=== PATIENT | female | born 1995 | race Caucasian/White ===

== ENCOUNTER 2020-08-16 14:07 | Observation (INO) ==
[2020-08-16] MEDS ORDERED: SODIUM CHLORIDE 0.9% 1,000 ML IV STA (15:36)
[2020-08-16] MEDS ORDERED: cefTRIAXone 1,000 MG in SODIUM CHLORIDE 0.9% 100 ML IV STA (15:43)
[2020-08-16] MEDS ORDERED: cefTRIAXone 1,000 MG VIAL ONE (16:18)
[2020-08-16 16:26] LABS: Basophils % 0.5 % (0.0-0.8); Eosinophils % 0.3 % (0.00-10.9); Hematocrit 40.3 VOL% (35.7-47.0); Hemoglobin 13.5 GM/DL (12.0-16.0); Immature Granulocytes % 0.6 %; Immature Granulocytes Absolute 0.05 #; Lymphocytes # 1.4 10*3/uL (1.4-4.0); Lymphocytes % 17.8 % (21.3-54.2); Mean Corpuscular HGB Conc 33.5 GM/DL (32-36); Mean Corpuscular Volume 78.6 FL (87-102); Mean Platelet Volume 9.2 FL (9.6-12.0); Monocytes % 8.6 % (1.7-12.7); Neutrophils % 72.2 % (38.7-73.9); Platelet Count 239 T/CUMM (130-400); Red Blood Count 5.13 MC/CUMM (3.8-5.5); Red Cell Distribution Width 13.1 % (9.3-17.3); White Blood Count 7.8 T/CUMM (4-12)
[2020-08-16 16:26] LABS: Bacteria,Urine Occasional /HPF (Few); Bilirubin,Urine Negative (Negative); Blood, Urine Negative (Negative); Glucose,Urine (UA) Negative (Negative); Ketones,Urine 5 mg/dL (Negative); Mucus,Urine Occasional /LPF (Occasional); Nitrite,Urine Negative (Negative); Protein,Urine Negative; RBC,Urine 2 /HPF (0-4); Squamous Epithelial Cell,Urine Occasional /HPF (0-10); Urine Appearance CLEAR (Clear); Urine Color Straw (Yellow); Urine Specific Gravity 1.011 (1.001-1.035); Urine Urobilinogen < 2.0 EU/DL (0.2-1.0); WBC,Urine 1 /HPF (0-6)
[2020-08-16 16:57] LABS: Ferritin 60.4 ng/ml (8-252)
[2020-08-16 16:58] LABS: Alanine Aminotransferase 45 U/L (13-56); Albumin 3.7 G/DL (3.4-5.0); Alkaline Phosphatase 63 U/L (45-117); Aspartate Amino Transferase 20 U/L (0-37); Bilirubin,Total < 0.39 MG/DL (0.2-1.0); Blood Urea Nitrogen 10 MG/DL (7-18); Calcium 8.9 MG/DL (8.5-10.1); Estimated Glom Filtration Rate 136 ML/MIN; Glucose 77 MG/DL (74-106)
[2020-08-16 16:59] LABS: Osmolality,Calculated 267.1 MOS/KG (273-304)
[2020-08-16] MEDS ORDERED: ACETAMINOPHEN 500 MG TABLET PO STA (17:36)
[2020-08-16] MEDS ORDERED: ACETAMINOPHEN 500 MG TABLET ONE (17:37)
[2020-08-16] MEDS ORDERED: ACETAMINOPHEN 325 MG TABLET PO PRN (18:36)
[2020-08-16] MEDS ORDERED: ONDANSETRON 4 MG/2 ML VIAL IV PRN (18:36)
[2020-08-16] MEDS ORDERED: IBUPROFEN 600 MG TABLET PO PRN (18:39)
[2020-08-16] MEDS: LACTATED RINGERS 1,000 ML IV SCH (21:42)
[2020-08-17] MEDS: LACTATED RINGERS 1,000 ML IV SCH (06:31)
[2020-08-17 11:15] VITALS: BP 140/79
[2020-08-17] MEDS ORDERED: POTASSIUM CHLORIDE 20 MEQ TABLET PO ONE (11:15)
== END 2020-08-17 12:10 | disposition home or self-care (01) ==
LOC: N.ED 14:07 → N.EDINP 14:07
PROVIDERS: ADMIT Family Medicine; ATTEND Family Medicine